=== PATIENT | female | born 1990 | race Caucasian/White ===

== ENCOUNTER 2018-01-09 00:25 | Outpatient (CLI) | payer MEDICAID, OTHER ==
[2018-01-09 00:56] LABS: MICROSCOPIC AUTO
== END 2018-01-09 02:10 | disposition home or self-care (01) ==
LOC: LDOP 00:25
PROVIDERS: ATTEND Obstetrics & Gynecology
DX: O46.90 Antepartum hemorrhage, unspecified, unspecified trimester (principal); Z3A.00 Weeks of gestation of pregnancy not specified
CPT/HCPCS: 59025; 81001; 87086; 99201; G0463

== ENCOUNTER 2018-02-03 21:59 | Outpatient (CLI) | payer MEDICAID ==
[~2018-02-03] VITALS: Ht 167.6 cm; Wt 80.0 kg
[2018-02-03 22:46] LABS: BASOPHILS # (AUTO) 0.04 x10^3/uL (0-0.1); BASOPHILS % (AUTO) 1 % (0-1); EOSINOPHILS % (AUTO) 1 % (1-7); LYMPHOCYTES # (AUTO) 1.73 x10^3/uL (1-3.4); LYMPHOCYTES % (AUTO) 21 % (22-44); MD NO; MEAN CORPUSCULAR HEMOGLOBIN 31.2 pg (27.0-34.8); MEAN CORPUSCULAR HGB CONC 34.2 g/dL (32.4-35.8); MEAN CORPUSCULAR VOLUME 91.3 fL (80-100); MEAN PLATELET VOLUME 6.1 fL (7.4-10.4); MONOCYTES % (AUTO) 9 % (2-9); NEUTROPHILS # (AUTO) 5.65 x10^3/uL (1.8-6.8); NEUTROPHILS % (AUTO) 69 % (42-75); PLATELET COUNT 258 x10^3/uL (130-400); RED BLOOD COUNT 4.09 x10^6/uL (3.82-5.3)
[2018-02-03 22:57] LABS: ALANINE AMINOTRANSFERASE 21 U/L (12-78); ANION GAP 10 mmol/L (5-15); CALCIUM 9.1 mg/dL (8.5-10.1); CHLORIDE 108 mmol/L (98-107); CREATININE 0.62 mg/dL (0.55-1.02)
[2018-02-03 22:59] LABS: ALKALINE PHOSPHATASE 69 U/L (45-117); BILIRUBIN,TOTAL 0.2 mg/dL (0.2-1.0); TOTAL PROTEIN 6.9 g/dL (6.4-8.2)
[2018-02-03] MEDS ORDERED: LACTATED RINGERS 1,000 ML IVBOLUS ONE (23:30)
== END 2018-02-04 00:54 | disposition home or self-care (01) ==
LOC: LDOP 21:59
PROVIDERS: ATTEND Obstetrics & Gynecology
DX: O21.2 Late vomiting of pregnancy (principal); O26.893 Other specified pregnancy related conditions, third trimester; R51 Headache; E86.0 Dehydration; Z3A.30 30 weeks gestation of pregnancy
CPT/HCPCS: 36415; 59025; 80053; 82570; 84156; 84550; 85025; 96360; 99211; J7120; 96361; G0463

== ENCOUNTER 2018-03-07 17:20 | Outpatient (CLI) | payer MEDICAID, OTHER ==
[~2018-03-07] VITALS: Ht 167.6 cm; Wt 90.9 kg
[2018-03-07 17:42] VITALS: BP 128/82
[2018-03-07 17:43] LABS: MICROSCOPIC AUTO
[2018-03-07 18:23] LABS: CREATININE,URINE RANDOM 92.1 mg/dL
[2018-03-07 18:32] LABS: BASOPHILS # (AUTO) 0.02 x10^3/uL (0-0.1); BASOPHILS % (AUTO) 0 % (0-1); EOSINOPHILS # (AUTO) 0.06 x10^3/uL (0-0.4); EOSINOPHILS % (AUTO) 1 % (1-7); LYMPHOCYTES # (AUTO) 1.53 x10^3/uL (1-3.4); LYMPHOCYTES % (AUTO) 23 % (22-44); MD NO; MEAN CORPUSCULAR HEMOGLOBIN 30.7 pg (27.0-34.8); MEAN CORPUSCULAR HGB CONC 33.9 g/dL (32.4-35.8); MEAN CORPUSCULAR VOLUME 90.7 fL (80-100); MEAN PLATELET VOLUME 6.4 fL (7.4-10.4); MONOCYTES # (AUTO) 0.68 x10^3/uL (0.2-0.8); MONOCYTES % (AUTO) 10 % (2-9); NEUTROPHILS # (AUTO) 4.33 x10^3/uL (1.8-6.8); NEUTROPHILS % (AUTO) 65 % (42-75); PLATELET COUNT 228 x10^3/uL (130-400); RED BLOOD COUNT 4.47 x10^6/uL (3.82-5.3); RED CELL DISTRIBUTION WIDTH 14.3 % (9.6-15.2)
[2018-03-07 18:43] LABS: ALANINE AMINOTRANSFERASE 29 U/L (12-78); ALBUMIN 2.9 g/dL (3.4-5.0); ANION GAP 8 mmol/L (5-15); CALCIUM 9.1 mg/dL (8.5-10.1); CHLORIDE 109 mmol/L (98-107); CREATININE 0.42 mg/dL (0.55-1.02)
[2018-03-07 18:45] LABS: ALKALINE PHOSPHATASE 116 U/L (45-117); BILIRUBIN,TOTAL 0.2 mg/dL (0.2-1.0); TOTAL PROTEIN 6.7 g/dL (6.4-8.2)
== END 2018-03-07 19:45 | disposition home or self-care (01) ==
LOC: LDOP 17:20
PROVIDERS: ATTEND Obstetrics & Gynecology
DX: Z34.83 Encounter for supervision of other normal pregnancy, third trimester (principal); Z3A.34 34 weeks gestation of pregnancy
CPT/HCPCS: 36415; 59025; 80053; 81001; 82570; 83615; 84156; 84550; 85025; 87086; 99211; G0463

== ENCOUNTER 2018-03-22 05:29 | Inpatient (IN) | payer MEDICAID, OTHER ==
[~2018-03-22] VITALS: Ht 167.6 cm; Wt 100.0 kg
[2018-03-22] MEDS ORDERED: LACTATED RINGERS 1,000 ML IV SCH ×2 (05:30→05:45)
[2018-03-22] MEDS ORDERED: LACTATED RINGERS 1,000 ML IVBOLUS ONE (05:30)
[2018-03-22] MEDS ORDERED: SODIUM CITRATE/CITRIC ACID 30 ML UDC PO ONE (05:30)
[2018-03-22] MEDS ORDERED: OXYTOCIN 30U/ 0.9% NaCL 500ML 500 ML IV SCH (05:30)
[2018-03-22] MEDS ORDERED: METOCLOPRAMIDE 5 MG/ML, 2ML IV ONE (05:30)
[2018-03-22] MEDS ORDERED: NEWBORN KIT ONE (05:38)
[2018-03-22 05:40] VITALS: BP 120/74
[2018-03-22] MEDS ORDERED: PREN-3 PO (05:50)
[2018-03-22] MEDS ORDERED: DOXY1TAB3 PO (05:50)
[2018-03-22 06:06] LABS: BASOPHILS # (AUTO) 0.03 x10^3/uL (0-0.1); BASOPHILS % (AUTO) 1 % (0-1); EOSINOPHILS # (AUTO) 0.06 x10^3/uL (0-0.4); EOSINOPHILS % (AUTO) 1 % (1-7); LYMPHOCYTES # (AUTO) 1.61 x10^3/uL (1-3.4); LYMPHOCYTES % (AUTO) 23 % (22-44); MD NO; MEAN CORPUSCULAR HEMOGLOBIN 30.6 pg (27.0-34.8); MEAN CORPUSCULAR HGB CONC 34.4 g/dL (32.4-35.8); MEAN CORPUSCULAR VOLUME 88.9 fL (80-100); MEAN PLATELET VOLUME 6.8 fL (7.4-10.4); MONOCYTES # (AUTO) 0.68 x10^3/uL (0.2-0.8); MONOCYTES % (AUTO) 10 % (2-9); NEUTROPHILS # (AUTO) 4.74 x10^3/uL (1.8-6.8); NEUTROPHILS % (AUTO) 67 % (42-75); PLATELET COUNT 221 x10^3/uL (130-400); RED BLOOD COUNT 4.43 x10^6/uL (3.82-5.3); RED CELL DISTRIBUTION WIDTH 14.6 % (9.6-15.2)
[2018-03-22] MEDS ORDERED: SODIUM CITRATE/CITRIC ACID 30 ML UDC ONE (07:04)
[2018-03-22] MEDS ORDERED: METOCLOPRAMIDE 5 MG/ML, 2ML ONE (07:04)
[2018-03-22] MEDS ORDERED: OXYTOCIN 30U/ 0.9% NaCL 500ML 500 ML ONE (07:04)
[2018-03-22] MEDS ORDERED: morphine SULFATE/PF 0.5 MG/ML, 10ML ONE (07:21)
[2018-03-22] MEDS ORDERED: OXYTOCIN 10 UNITS/ML, 1ML ONE (07:59)
[2018-03-22] MEDS ORDERED: EPHEDRINE 50 MG/ML, 1ML ONE (07:59)
[2018-03-22] MEDS ORDERED: CEFAZOLIN 1,000 MG ONE (07:59)
[2018-03-22] MEDS ORDERED: WATER-INJECTION,STERILE 10 ML IV ONE (07:59)
[2018-03-22] MEDS ORDERED: ONDANSETRON 2MG/ML, 2ML ONE (07:59)
[2018-03-22] MEDS ORDERED: PHENYLEPHRINE 10 MG/ML ONE (07:59)
[2018-03-22] MEDS ORDERED: HYDROmorphone 2 MG/ML, 1ML ONE (07:59)
[2018-03-22] MEDS ORDERED: EPINEPHRINE 1 MG/ML, 1ML ONE (08:02)
[2018-03-22] MEDS: LACTATED RINGERS 1,000 ML IV SCH ×4 (08:23→18:23)
[2018-03-22] MEDS ORDERED: MEPERIDINE/PF 50 MG/ML IVPush PRN (08:30)
[2018-03-22] MEDS ORDERED: MISOPROSTOL 200 MCG TABLET PR PRN (08:30)
[2018-03-22] MEDS ORDERED: MEPERIDINE/PF 100 MG/ML IVPush PRN (08:30)
[2018-03-22] MEDS ORDERED: morphine SULFATE 10 MG/ML, 1ML IVPush PRN (08:30)
[2018-03-22] MEDS ORDERED: ACETAMINOPHEN 325 MG TABLET PO PRN (08:30)
[2018-03-22] MEDS ORDERED: ONDANSETRON 2MG/ML, 2ML IV PRN (08:30)
[2018-03-22] MEDS ORDERED: KETOROLAC 30 MG/1 ML ONE (08:37)
[2018-03-22] MEDS: KETOROLAC 30 MG/1 ML IV SCH ×3 (08:39→20:40)
[2018-03-22] MEDS: PRENATAL VIT/IRON/FA 1 EACH TABLET PO SCH (09:00)
[2018-03-22] MEDS: OXYTOCIN 30U/ 0.9% NaCL 500ML 500 ML IV SCH ×2 (09:55→18:23)
[2018-03-22] MEDS ORDERED: morphine SULFATE 10 MG/ML, 1ML ONE (09:59)
[2018-03-22] MEDS: morphine SULFATE 10 MG/ML, 1ML IVPush PRN (10:00)
[2018-03-22 10:30] VITALS: BP 109/66
[2018-03-22] MEDS ORDERED: DIPHENHYDRAMINE 50 MG/ML, 1ML ONE (10:42)
[2018-03-22] MEDS ORDERED: DIPHENHYDRAMINE 50 MG/ML, 1ML IVPush ONE (11:00)
[2018-03-22 14:30] VITALS: BP 109/68
[2018-03-22] MEDS: OXYcodone/APAP 5/325MG TABLET PO PRN ×3 (16:01→23:52)
[2018-03-22 17:55] VITALS: BP 107/73
[2018-03-22 18:06] LABS: BASOPHILS # (AUTO) 0.03 x10^3/uL (0-0.1); BASOPHILS % (AUTO) 0 % (0-1); EOSINOPHILS # (AUTO) 0.05 x10^3/uL (0-0.4); EOSINOPHILS % (AUTO) 1 % (1-7); LYMPHOCYTES % (AUTO) 16 % (22-44); MD NO; MEAN CORPUSCULAR HEMOGLOBIN 30.9 pg (27.0-34.8); MEAN CORPUSCULAR VOLUME 90.9 fL (80-100); MEAN PLATELET VOLUME 6.5 fL (7.4-10.4); MONOCYTES # (AUTO) 0.82 x10^3/uL (0.2-0.8); MONOCYTES % (AUTO) 9 % (2-9); NEUTROPHILS # (AUTO) 6.89 x10^3/uL (1.8-6.8); NEUTROPHILS % (AUTO) 74 % (42-75); PLATELET COUNT 186 x10^3/uL (130-400); RED BLOOD COUNT 4.08 x10^6/uL (3.82-5.3); RED CELL DISTRIBUTION WIDTH 14.5 % (9.6-15.2)
[2018-03-22 19:38] VITALS: BP 106/73
[2018-03-22] MEDS ORDERED: MEASLES,MUMPS&RUBELLA VACC/PF 0.5 ML SQ-VACC ONE ×2 (21:58→22:00)
[2018-03-23 00:32] VITALS: BP 106/64
[2018-03-23] MEDS: OXYcodone/APAP 5/325MG TABLET PO PRN ×6 (00:44→21:09)
[2018-03-23] MEDS: KETOROLAC 30 MG/1 ML IV SCH ×4 (02:47→21:09)
[2018-03-23] MEDS: PRENATAL VIT/IRON/FA 1 EACH TABLET PO SCH ×2 (04:33→21:09)
[2018-03-23 04:39] VITALS: BP 99/67
[2018-03-23 07:40] VITALS: BP 121/83
[2018-03-23] MEDS: morphine SULFATE 10 MG/ML, 1ML IVPush PRN (14:05)
[2018-03-23] MEDS: DOCUSATE 100 MG CAPSULE PO PRN ×2 (14:27→21:09)
[2018-03-23 21:20] VITALS: BP 121/84
[2018-03-23 21:30] VITALS: BP 129/87
[2018-03-24] MEDS: OXYcodone/APAP 5/325MG TABLET PO PRN ×4 (02:58→18:02)
[2018-03-24] MEDS: KETOROLAC 30 MG/1 ML IV SCH (03:05)
[2018-03-24 07:50] VITALS: BP 128/81
[2018-03-24] MEDS: IBUPROFEN 800 MG TABLET PO PRN ×2 (10:21→18:02)
[2018-03-24 19:30] VITALS: BP 111/70
[2018-03-24] MEDS: SIMETHICONE 80 MG CHEW TAB PO PRN (20:10)
[2018-03-24] MEDS: PRENATAL VIT/IRON/FA 1 EACH TABLET PO SCH (21:30)
[2018-03-25] MEDS: IBUPROFEN 800 MG TABLET PO PRN ×3 (03:15→21:06)
[2018-03-25] MEDS: OXYcodone/APAP 5/325MG TABLET PO PRN ×5 (03:15→21:06)
[2018-03-25] MEDS: SIMETHICONE 80 MG CHEW TAB PO PRN ×2 (04:02→22:48)
[2018-03-25 07:29] VITALS: BP 109/71
[2018-03-25 20:00] VITALS: BP 138/98
[2018-03-25 22:30] VITALS: BP 118/75
[2018-03-25] MEDS: PRENATAL VIT/IRON/FA 1 EACH TABLET PO SCH (22:48)
[2018-03-26] MEDS: OXYcodone/APAP 5/325MG TABLET PO PRN ×3 (00:56→11:15)
[2018-03-26] MEDS: SIMETHICONE 80 MG CHEW TAB PO PRN (05:00)
[2018-03-26] MEDS: IBUPROFEN 800 MG TABLET PO PRN ×2 (05:00→13:53)
[2018-03-26 07:55] VITALS: BP 131/79
[2018-03-26] MEDS ORDERED: IBUP-1222 PO (11:39)
[2018-03-26] MEDS ORDERED: OXYC-302 PO (11:39)
[2018-03-26] MEDS ORDERED: DIPH,PERTUSS(ACELL),TET VAC/PF NC IM-VACC ONE ×2 (13:03→13:30)
== END 2018-03-26 14:11 | disposition home or self-care (01) | DRG 788 ==
LOC: LDIP 05:29 → 2NW 10:19
PROVIDERS: ADMIT Obstetrics & Gynecology; ATTEND Obstetrics & Gynecology
PROC: 10D00Z1 Extraction of Products of Conception, Low, Open Approach (ICD-10-PCS; principal; 2018-03-22)
DX: O34.211 Maternal care for low transverse scar from previous cesarean delivery (principal); O24.420 Gestational diabetes mellitus in childbirth, diet controlled; O99.214 Obesity complicating childbirth; E66.9 Obesity, unspecified; O14.04 Mild to moderate pre-eclampsia, complicating childbirth; O99.824 Streptococcus B carrier state complicating childbirth; Z37.0 Single live birth; Z3A.37 37 weeks gestation of pregnancy
CPT/HCPCS: 36415; 85025; 86850; 86900; 90715; G0378; J0171; J0690; J1170; J1885; J2274; J2405; J1200; J2270; J2370; J2590; J2765; J7120